=== PATIENT | female | born 1980 | race Two or more races ===

== ENCOUNTER 2024-04-26 02:50 | Emergency (ER) | payer BC, OTHER ==
[~2024-04-26] VITALS: Ht 149.9 cm; Wt 64.0 kg
[~2024-04-26 02:50] MED LIST: ONDA4TAB5 PO
[2024-04-26 03:50] LABS: BASOPHILS # (AUTO) 0.1 K/UL (0.0-0.2); BASOPHILS % (AUTO) 0.5 % (0.0-2.0); EOSINOPHILS % (AUTO) 0.2 % (0.0-7.0); HEMATOCRIT 35.7 % (31.2-41.9); HEMOGLOBIN 11.5 g/dL (10.9-14.3); LYMPHOCYTES # (AUTO) 1.6 K/uL (0.8-4.8); LYMPHOCYTES % (AUTO) 11.6 % (20.5-51.5); MEAN CORPUSCULAR HEMOGLOBIN 25.5 uug (24.7-32.8); MEAN CORPUSCULAR HGB CONC 32 g/dL (32.3-35.6); MEAN CORPUSCULAR VOLUME 79.1 fL (75.5-95.3); MONOCYTES # (AUTO) 0.7 K/uL (0.1-1.30); MONOCYTES % (AUTO) 5.1 % (0.0-11.0); NEUTROPHILS # (AUTO) 11.3 K/uL (1.8-8.9); NEUTROPHILS % (AUTO) 82.6 % (38.5-71.5); PLATELET COUNT (AUTO) 226 K/uL (179-408); RED BLOOD CELL COUNT(AUTO) 4.52 MIL/uL (3.63-4.92); RED CELL DISTRIBUTION WIDTH 15.1 % (12.3-17.7); WHITE BLOOD COUNT (AUTO) 13.7 K/uL (3.8-11.8)
[2024-04-26] MEDS ORDERED: HYDROCODONE/APAP 5-325MG TABLET ONE (03:51)
[2024-04-26] MEDS ORDERED: ONDANSETRON ODT 4 MG TAB.RAPDIS ONE (03:51)
[2024-04-26] MEDS: HYDROCODONE/APAP 5-325MG TABLET PO ONE (03:53)
[2024-04-26] MEDS: ONDANSETRON ODT 4 MG TAB.RAPDIS SL ONE (03:54)
[2024-04-26 03:56] LABS: DIFFERENTIAL COMMENT 1
[2024-04-26 04:04] LABS: LIPASE 54 U/L (16-77)
[2024-04-26 04:10] LABS: *BILIRUBIN,URIN NEGATIVE (NEGATIVE); *BLOOD, URINE NEGATIVE (NEGATIVE); *CLARITY,URINE CLOUDY (CLEAR); *COLOR,URINE YELLOW (YELLOW); *KETONES,URINE NEGATIVE (NEGATIVE); *PROTEIN,URINE NEGATIVE (NEGATIVE); *UROBILINOGEN,URINE 0.2 E.U./dl (NORMAL); LEUKOCYTE ESTERASE ,URINE TRACE (NEGATIVE); NITRITE, URINE NEGATIVE (NEGATIVE); PH,URINE 7.5 (5.0-8.0)
[2024-04-26 04:33] LABS: ALANINE AMINOTRANSFERASE 24 U/L (14-59); ALBUMIN 3.6 g/dL (3.4-5.0); ALKALINE PHOSPHATASE 106 U/L (50-136); ASPARTATE AMINOTRANSFERASE < 5 U/L (15-37); BILIRUBIN,DIRECT 0.1 mg/dL (0.0-0.2); BILIRUBIN,TOTAL 0.2 mg/dL (0.2-1.0); CALCIUM 8.9 mg/dL (8.5-10.1); CARBON DIOXIDE 28 mmol/L (21-32); CHLORIDE 101 mmol/L (98-107); CREATININE 0.9 mg/dL (0.6-1.3); GLUCOSE 209 mg/dL (74-106); POTASSIUM 3.5 mmol/L (3.5-5.1); SODIUM SERUM 139 mmol/L (136-145); TOTAL PROTEIN, SERUM 7.9 g/dL (6.4-8.2); UREA NITROGEN, BLOOD 18 mg/dL (7-18)
[2024-04-26 04:46] LABS: *URINE HCG, QUAL NEGATIVE (NEGATIVE)
[2024-04-26 04:47] LABS: UGLUCOSE 1+ (NEGATIVE)
[2024-04-26 05:13] LABS: BACTERIA,URINE MODERATE /HPF (NONE SEEN); RBC,URINE NONE SEEN /HPF (0-3); SQUAMOUS EPITHELIAL CELL,UR FEW /HPF (NONE SEEN); URINE AMORPHOUS URATE MODERATE /HPF; WBC,URINE 0-3 /HPF (0-3)
[2024-04-26] MEDS ORDERED: KETOROLAC TROMETHAMINE 30 MG INJ ONE (05:45)
[2024-04-26] MEDS ORDERED: HYDR-4209 PO (05:47)
[2024-04-26] MEDS ORDERED: IBUP-1955 PO (05:47)
[2024-04-26] MEDS: KETOROLAC TROMETHAMINE 30 MG INJ IM ONE (05:51)
[2024-04-26 06:03] VITALS: BP 130/72; TEMP 98; O2SAT 100
== END 2024-04-26 06:01 | disposition home or self-care (01) ==
LOC: ER 02:51
DX: K80.70 Calculus of gallbladder and bile duct without cholecystitis without obstruction (principal); R73.9 Hyperglycemia, unspecified; R10.2 Pelvic and perineal pain; Z79.899 Other long term (current) drug therapy; Z98.891 History of uterine scar from previous surgery
CPT/HCPCS: 99285; 76700; 80076; 80048; 81001; 84703; 83690; 85025; 36415; 96372; J1885; A4606; A4663; Q0162